=== PATIENT | female | born 1980 | race Caucasian/White ===

== ENCOUNTER 2024-06-27 19:02 | Emergency (ER) | payer OTHER ==
--- NOTE | 2024-06-27 19:29 | ERPHSYRPT ---
- History of Present Illness Time Seen by Provider: 06/27/24 19:29 Historian: patient, family Exam Limitations: no limitations Physician History: This is an obese 44-year-old white female patient of nurse practitioner Rylan who is brought in by private vehicle escorted by her secondary to abdominal pain and associated of weakness, nausea, vomiting and diarrhea symptoms multiple times in the last 3 days. Patient had an increase of her dose of Wegovy. Thursday prior to arrival, was her first increased dose. Patient has a history of hypertension, diabetes, hyperlipidemia and depression. She denies chest pain. Patient denies chest pain. Timing/Duration: day(s) (3), worse Quality: sharpness Abdominal Pain Onset Location: generalized abdomen Severity of Pain-Max: mild Severity of Pain-Current: mild (Moderate to moderate) Modifying Factors: Improves With: vomiting Associated Symptoms: diarrhea, loss of appetite, nausea, vomiting, weakness Previous symptoms: no prior history, no recent treatment Allergies/Adverse Reactions: Penicillins Allergy (Verified 06/27/24 19:42) Anaphylactic Reaction diazepam Adverse Reaction (Verified 06/27/24 19:42) Rash Home Medications: Amlodipine Besylate 5 mg [Norvasc 5 mg] 1 tab PO DAILY 06/27/24 [History] Atorvastatin Calcium 1 tab PO DAILY 06/27/24 [History] Escitalopram Oxalate 1 tab PO DAILY 06/27/24 [History] Losartan Potassium 1 tab PO DAILY 06/27/24 [History] Ondansetron [Ondansetron Odt ] 1 tab PO TID PRN 06/27/24 [History] Semaglutide [Wegovy] 1 mg SQ WEEKLY 06/27/24 [History] l-Norgest/E.estradiol-E.estrad [Levono-E Estrad 0.15-0.03-0.01] 1 tab PO DAILY 06/27/24 [History] Travel Risk - International Travel Have you traveled outside of the country in past 3 weeks: No - Emerging Infectious Disease Symptoms: Abdominal Pain, Diarrhea, Vomitting - Review of Systems Constitutional: Weakness Eyes: No Symptoms Ears, Nose, & Throat: No Symptoms Respiratory: No Symptoms Cardiac: No Symptoms Abdominal/Gastrointestinal: Abdominal Pain, Nausea, Vomiting, Appetite Changes Genitourinary Symptoms: No Symptoms Musculoskeletal: No Symptoms Skin: No Symptoms Neurological: No Symptoms Psychological: No Symptoms Endocrine: No Symptoms Hematologic/Lymphatic: No Symptoms Immunological/Allergic: No Symptoms All Other Systems: Reviewed and Negative - Past Medical History Pertinent Past Medical History: Yes - Nursing Vital Signs Nursing Vital Signs: Initial Vital Signs Temperature 97.8 F 06/27/24 19:32 Pulse Rate 71 06/27/24 19:32 Respiratory Rate 17 06/27/24 19:32 Blood Pressure 147/99 06/27/24 19:32 O2 Sat by Pulse Oximetry 97 06/27/24 19:32 Pain Scale Pain Intensity 4 - Physical Exam General Appearance: no apparent distress, alert, anxiety, obese Eye Exam: PERRL/EOMI, eyes nml inspection Ears, Nose, Throat Exam: normal ENT inspection, moist mucous membranes Neck Exam: normal inspection, non-tender, supple, full range of motion Respiratory Exam: normal breath sounds, lungs clear, airway intact, No chest tenderness, No respiratory distress Cardiovascular Exam: regular rate/rhythm, normal heart sounds, normal peripheral pulses Gastrointestinal/Abdomen Exam: soft, normal bowel sounds, tenderness (Mild diffuse tenderness to palpation), guarding (Mild diffuse tenderness to palpation), No rebound Pelvic Exam: not done Rectal Exam: not done Back Exam: normal inspection, normal range of motion, No CVA tenderness, No vertebral tenderness Extremity Exam: normal inspection, normal range of motion, pelvis stable Neurologic Exam: alert, oriented x 3, cooperative, 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 QTc is 453) Ordered Tests: Active Orders 24 hr Category Date Time Status IV Insertion STAT Care 06/27/24 19:54 Active ABDOMEN AND PELVIS W/0 CONTRAS [CT] Stat Exams 06/27/24 19:55 Taken AMYLASE Stat Lab 06/27/24 20:10 Completed CBC W DIFF Stat Lab 06/27/24 20:10 Completed CMP Stat Lab 06/27/24 20:10 Completed CULTURE,URINE Stat Lab 06/27/24 19:28 Received HCG QUALITATIVE, SERUM Stat Lab 06/27/24 20:20 Completed LIPASE Stat Lab 06/27/24 20:10 Completed UA W/RFX UR CULTURE Stat Lab 06/27/24 19:28 Completed Medication Summary Discontinued Medications Generic Name Dose Route Start Last Admin Trade Name Romeo PRN Reason Stop Dose Admin Sodium Chloride 1,000 mls @ 999 mls/hr 06/27/24 19:54 06/27/24 21:38 Sodium Chloride 0.9% 1000 Ml IV 06/27/24 20:54 Infused .Q1H1M STA Infusion Sodium Chloride Confirm 06/27/24 20:15 Sodium Chloride 0.9% 1000 Ml Administered 06/27/24 20:16 Dose 1,000 mls @ ud .ROUTE .STK-MED ONE Sodium Chloride 1,000 mls @ 999 mls/hr 06/27/24 21:34 06/27/24 22:50 Sodium Chloride 0.9% 1000 Ml IV 06/27/24 22:34 Infused .Q1H1M STA Infusion Sodium Chloride Confirm 06/27/24 21:37 Sodium Chloride 0.9% 1000 Ml Administered 06/27/24 21:38 Dose 1,000 mls @ ud .ROUTE .STK-MED ONE Sodium Chloride 500 mls @ 500 mls/hr 06/27/24 22:56 06/27/24 23:06 Sodium Chloride 0.9% 500 Ml IV 06/27/24 23:55 500 mls/hr .Q1H ONE Administration Sodium Chloride Confirm 06/27/24 23:05 Sodium Chloride 0.9% 500 Ml Administered 06/27/24 23:06 Dose 500 mls @ ud IV .STK-MED ONE Levofloxacin 500 mg 06/27/24 22:55 06/27/24 23:27 Levofloxacin 500 Mg Tablet PO 06/27/24 22:56 500 mg STAT ONE Administration Levofloxacin Confirm 06/27/24 23:27 Levofloxacin 500 Mg Tablet Administered 06/27/24 23:28 Dose 500 mg .ROUTE .STK-MED ONE Metronidazole 500 mg 06/27/24 22:55 06/27/24 23:28 Metronidazole 500 Mg Tablet PO 06/27/24 22:56 500 mg STAT ONE Administration Metronidazole Confirm 06/27/24 23:27 Metronidazole 500 Mg Tablet Administered 06/27/24 23:28 Dose 500 mg .ROUTE .STK-MED ONE Ondansetron HCl 4 mg 06/27/24 19:54 06/27/24 20:21 Ondansetron Hcl 4 Mg/2 Ml Vial IV 06/27/24 19:55 4 mg STAT ONE Administration Ondansetron HCl Confirm 06/27/24 20:15 Ondansetron Hcl 4 Mg/2 Ml Vial Administered 06/27/24 20:16 Dose 4 mg .ROUTE .STK-MED ONE Ondansetron HCl 4 mg 06/27/24 23:03 06/27/24 23:06 Ondansetron Hcl 4 Mg/2 Ml Vial IV 06/27/24 23:04 4 mg STAT ONE Administration Ondansetron HCl Confirm 06/27/24 23:05 Ondansetron Hcl 4 Mg/2 Ml Vial Administered 06/27/24 23:06 Dose 4 mg .ROUTE .STK-MED ONE Pantoprazole Sodium 40 mg 06/27/24 19:54 06/27/24 20:21 Pantoprazole 40 Mg Vial IV 06/27/24 19:55 40 mg STAT ONE Administration Pantoprazole Sodium Confirm 06/27/24 20:15 Pantoprazole 40 Mg Vial Administered 06/27/24 20:16 Dose 40 mg IV .STK-MED ONE Lab/Rad Data: Laboratory Result Diagrams 06/27/24 20:10 06/27/24 20:10 Laboratory Results 06/27/24 06/27/24 06/27/24 Range/Units 20:20 20:10 20:10 WBC 13.0 H (3.98-10.04) x10^3/uL RBC 4.36 (3.93-5.22) x10^6/uL Hgb 13.2 (11.2-15.7) g/dL Hct 38.8 (34.1-44.9) % MCV 89.0 (79.4-94.8) fL MCH 30.3 (25.6-32.2) pg MCHC 34.0 (32.2-35.5) g/dL RDW 12.4 (11.7-14.4) % Plt Count 334 (182-369) x10^3/uL MPV 10.3 (9.4-12.3) fL Gran % 74.4 H (34.0-71.1) % Immature Gran % (Auto) 0.5 H (0.001-0.429) % Nucleat RBC Rel Count 0.0 (0.00-0.2) % Eos # (Auto) 0.25 (0.04-0.36) x10^3/uL Immature Gran # (Auto) 0.06 H (0.001-0.031) x10^3u/L Absolute Lymphs (auto) 2.31 (1.18-3.74) x10^3/uL Absolute Monos (auto) 0.69 (0.24-0.86) x10^3/uL Absolute Nucleated RBC 0.00 (0.00-0.012) x10^3u/L Lymphocytes % 17.7 L (19.3-51.7) % Monocytes % 5.3 (4.7-12.5) % Eosinophils % 1.9 (0.7-5.8) % Basophils % 0.2 (0.1-1.2) % Absolute Granulocytes 9.71 H (1.56-6.13) x10^3/uL Basophils # 0.02 (0.01-0.08) x10^3/uL Sodium 141 (135-145) mmol/L Potassium 3.7 (3.5-5.1) mmol/L Chloride 106 (98-107) mmol/L Carbon Dioxide 22 (22-30) mmol/L Anion Gap 16.9 H (5-15) MEQ/L BUN 20 H (7-17) mg/dL Creatinine 1.94 H (0.52-1.04) mg/dL Estimated GFR 32.4 ML/MIN Glucose 97 (74-106) mg/dL Calcium 9.2 (8.4-10.2) mg/dL Total Bilirubin 0.70 (0.2-1.3) mg/dL AST 28 (14-36) U/L ALT 38 H (0-35) U/L Alkaline Phosphatase 64 (38-126) U/L Serum Total Protein 7.4 (6.3-8.2) g/dL Albumin 4.4 (3.5-5.0) g/dL Amylase 64 (30-110) U/L Lipase 51 (23-300) U/L Serum HCG, Qual NEGATIVE (NEGATIVE) Urine Color (Yellow) Urine Appearance (Clear) Urine pH (4.6-8.0) Ur Specific [place] (1.005-1.030) Urine Protein (Negative) Urine Glucose (UA) (Negative) mg/dL Urine Ketones (Negative) Urine Blood (Negative) Urine Nitrite (Negative) Urine Bilirubin (Negative) Urine Urobilinogen (0.2) mg/dL Ur Leukocyte Esterase (Negative) U Hyaline Cast (Auto) (0-2) /LPF Urine Microscopic RBC (0-5) /HPF Urine Microscopic WBC (0-5) /HPF Ur Epithelial Cells (None Seen) /HPF Urine Bacteria (None Seen) /HPF Urine Culture Reflexed (NO) Slides for Path Review NO 06/27/24 Range/Units 19:28 WBC (3.98-10.04) x10^3/uL RBC (3.93-5.22) x10^6/uL Hgb (11.2-15.7) g/dL Hct (34.1-44.9) % MCV (79.4-94.8) fL MCH (25.6-32.2) pg MCHC (32.2-35.5) g/dL RDW (11.7-14.4) % Plt Count (182-369) x10^3/uL MPV (9.4-12.3) fL Gran % (34.0-71.1) % Immature Gran % (Auto) (0.001-0.429) % Nucleat RBC Rel Count (0.00-0.2) % Eos # (Auto) (0.04-0.36) x10^3/uL Immature Gran # (Auto) (0.001-0.031) x10^3u/L Absolute Lymphs (auto) (1.18-3.74) x10^3/uL Absolute Monos (auto) (0.24-0.86) x10^3/uL Absolute Nucleated RBC (0.00-0.012) x10^3u/L Lymphocytes % (19.3-51.7) % Monocytes % (4.7-12.5) % Eosinophils % (0.7-5.8) % Basophils % (0.1-1.2) % Absolute Granulocytes (1.56-6.13) x10^3/uL Basophils # (0.01-0.08) x10^3/uL Sodium (135-145) mmol/L Potassium (3.5-5.1) mmol/L Chloride (98-107) mmol/L Carbon Dioxide (22-30) mmol/L Anion Gap (5-15) MEQ/L BUN (7-17) mg/dL Creatinine (0.52-1.04) mg/dL Estimated GFR ML/MIN Glucose (74-106) mg/dL Calcium (8.4-10.2) mg/dL Total Bilirubin (0.2-1.3) mg/dL AST (14-36) U/L ALT (0-35) U/L Alkaline Phosphatase (38-126) U/L Serum Total Protein (6.3-8.2) g/dL Albumin (3.5-5.0) g/dL Amylase (30-110) U/L Lipase (23-300) U/L Serum HCG, Qual (NEGATIVE) Urine Color Yellow (Yellow) Urine Appearance Cloudy A (Clear) Urine pH 5.5 (4.6-8.0) Ur Specific [place] 1.025 (1.005-1.030) Urine Protein 30 (Negative) Urine Glucose (UA) Negative (Negative) mg/dL Urine Ketones 15 A (Negative) Urine Blood Trace (Negative) Urine Nitrite Negative (Negative) Urine Bilirubin Negative (Negative) Urine Urobilinogen 1.0 A (0.2) mg/dL Ur Leukocyte Esterase Small A (Negative) U Hyaline Cast (Auto) 20-50 (0-2) /LPF Urine Microscopic RBC 11-20 A (0-5) /HPF Urine Microscopic WBC 11-20 A (0-5) /HPF Ur Epithelial Cells Few (None Seen) /HPF Urine Bacteria Few A (None Seen) /HPF Urine Culture Reflexed YES (NO) Slides for Path Review - Progress Progress: improved, re-examined Progress Note: 06/27/24 21:01 My medical decision making and the assignment of moderate complexity to this patient's medical issue today is based on review of the patient's past medical history, review the patient's medication list, reviewed patient drug allergy list, history present illness and physical findings on examination. The workup in this patient includes placement of intravenous line, infusion of normal saline solution, urinalysis, amylase, lipase, CBC, CMP, infusion of Zofran, infusion to Protonix, CT scan of the abdomen pelvis without contrast and hCG. Differential diagnosis includes but is not limited to medication side effect, electrolyte abnormalities, urinary tract infection, pancreatitis, appendicitis, colitis, cholecystitis/cholelithiasis 06/27/24 21:57 I interpreted the patient's laboratory data results. Based on the laboratory data results, and comparing today's results to lab results dated March 2024, the patient does have what appears to be acute renal insufficiency likely from dehydration. We are still waiting for the urinalysis to look at the ketone status as well as to determine if there is a urinary tract infection present. CT scan of the abdomen pelvis without contrast was interpreted by the radiologist and I reviewed the interpretation. The interpretation states no comparison studies. Normal appendix. Diarrhea present. Otherwise negative CT scan of the abdomen and pelvis without contrast. Counseled pt/family regarding: lab results, diagnosis, need for follow-up, rad results Medical Desision Making - Independent Historian Additional History obtained from: Spouse - Departure Departure Disposition: Home Clinical Impression: Diarrhea due to drug, Acute renal insufficiency, Mild dehydration, UTI (urinary tract infection) Condition: Stable Critical Care Time: No Referrals: MARYBETH WARNER NP [Primary Care Provider] - Follow up/PCP as directed Additional Instructions: Drink plenty of clear liquids over the next 24 hours before advancing your diet. Avoid fatty greasy spicy foods. Take your medications as prescribed. Call your primary care provider tomorrow, 06/28/2024, to make arrangement for follow- up appointment for further evaluation management. Hold your Wegovy dose until after you speak with your prescribing provider for further instructions and management. Prescriptions: Ondansetron ODT 4 MG [Zofran Odt 4 mg] 4 mg PO Q6H PRN PRN #10 tablet PRN Reason: Vomiting Ciprofloxacin [Cipro 500 MG] 500 mg PO BID #14 tablet Metronidazole 500 mg [Flagyl 500 MG] 500 mg PO TID #21 tablet
[2024-06-27 19:49] VITALS: TEMP 97.8
[2024-06-27 20:13] VITALS: O2SAT 100
[2024-06-27] MEDS ORDERED: Sodium Chloride 0.9% 1000 ML 1,000 ML ONE ×2 (20:15→21:37)
[2024-06-27] MEDS ORDERED: PROTONIX 40 MG IV IV ONE (20:15)
[2024-06-27] MEDS ORDERED: Zofran 4 MG/2 ML VIAL ONE ×2 (20:15→23:05)
[2024-06-27] MEDS: Sodium Chloride 0.9% 1000 ML 1,000 ML IV STA ×2 (20:20→21:38)
[2024-06-27] MEDS: PROTONIX 40 MG IV IV ONE (20:21)
[2024-06-27] MEDS: Zofran 4 MG/2 ML VIAL IV ONE ×2 (20:21→23:06)
[2024-06-27 20:31] LABS: ALBUMIN 4.4 g/dL (3.5-5.0); ANION GAP 16.9 MEQ/L (5-15); BILIRUBIN,TOTAL 0.7 mg/dL (0.2-1.3); Calcium 9.2 mg/dL (8.4-10.2); Creatinine 1 1.94 mg/dL (0.52-1.04); EST GLOMERULAR FILTRATION RATE 32.4 ML/MIN; Potassium 3.7 mmol/L (3.5-5.1); Total Protein 7.4 g/dL (6.3-8.2)
[2024-06-27 20:37] LABS: Hematocrit 38.8 % (34.1-44.9); Hemoglobin 13.2 g/dL (11.2-15.7); Red Blood Count 4.36 x10^6/uL (3.93-5.22)
[2024-06-27 20:38] LABS: Absolute Neutrophil Ct (ANC) 9.71 x10^3/uL (1.56-6.13); BASOPHIL % 0.2 % (0.1-1.2); Eosinophil % 1.9 % (0.7-5.8); Eosinophil (Absolute #) 0.25 x10^3/uL (0.04-0.36); IMMATURE GRAN % 0.5 % (0.001-0.429); Lymphocyte (Absolute #) 2.31 x10^3/uL (1.18-3.74); Lymphocytes % 17.7 % (19.3-51.7); Mean Corpuscular Hemoglobin 30.3 pg (25.6-32.2); Mean Platelet Volume 10.3 fL (9.4-12.3); Monocyte (Absolute #) 0.69 x10^3/uL (0.24-0.86); Monocytes % 5.3 % (4.7-12.5); Neutrophil % 74.4 % (34.0-71.1); Platelet Count 334 x10^3/uL (182-369); Red Cell Distribution Width 12.4 % (11.7-14.4)
[2024-06-27 20:39] LABS: Basophil (Absolute #) 0.02 x10^3/uL (0.01-0.08)
[2024-06-27 20:40] LABS: IMMATURE GRAN # 0.06 x10^3u/L (0.001-0.031)
[2024-06-27 20:43] LABS: HCG SERUM TEST NEGATIVE (NEGATIVE)
[2024-06-27 20:45] LABS: Slide Review 1 NO
[2024-06-27 22:46] LABS: Appearance Cloudy (Clear); Bacteria Few /HPF (None Seen); Bilirubin Negative (Negative); Blood Trace (Negative); Epithelial Cells Few /HPF (None Seen); Glucose, Urine Negative (Negative); Ketones 15 (Negative); Leukocyte Esterase Small (Negative); Nitrite Negative (Negative); Ph 5.5 (4.6-8.0); Protein,Urine Dip 30 (Negative); Specific Gravity 1.025 (1.005-1.030)
[2024-06-27 22:47] LABS: Hyaline Casts 20-50 /LPF (0-2)
[2024-06-27] MEDS ORDERED: Sodium Chloride 0.9% 500 ML 500 ML IV ONE (23:05)
[2024-06-27] MEDS: Sodium Chloride 0.9% 500 ML 500 ML IV ONE (23:06)
[2024-06-27] MEDS: Levofloxacin 500 MG Tablet PO ONE (23:27)
[2024-06-27] MEDS ORDERED: Levofloxacin 500 MG Tablet ONE (23:27)
[2024-06-27] MEDS ORDERED: Flagyl 500 MG ONE (23:27)
[2024-06-27] MEDS: Flagyl 500 MG PO ONE (23:28)
[2024-06-28 00:02] VITALS: BP 141/94; PULSE 82; RESP 16
--- NOTE | 2024-06-28 08:40 | XRAY ---
Indication: Abdominal pain, nausea, vomiting, and diarrhea. Multiple contiguous axial images obtained through the abdomen and pelvis without contrast. Comparison: None Lung bases clear. Heart not enlarged. Noncontrasted stomach and bowel loops appear nonobstructed with normal appendix. Mild diffuse colonic diarrhea. No free fluid/air. Remaining liver, gallbladder, pancreas, spleen, adrenal glands, kidneys, ureters, bladder, uterus, and aorta are unremarkable for noncontrast exam. Osseous structures intact with old left innominate bone fracture with beam artifact from fixation plates/screws. No ventral or inguinal hernias. Impression: 1. Colonic diarrhea and old left innominate bone fracture. 2. Remaining CT abdomen/pelvis without contrast exam is negative.
== END 2024-06-28 00:09 | disposition home or self-care (01) ==
LOC: ED 19:02
DX: K52.1 Toxic gastroenteritis and colitis (principal); T50.995A Adverse effect of other drugs, medicaments and biological substances, initial encounter; N17.9 Acute kidney failure, unspecified; E86.0 Dehydration; N39.0 Urinary tract infection, site not specified; R11.2 Nausea with vomiting, unspecified; R10.9 Unspecified abdominal pain; R53.1 Weakness; I10 Essential (primary) hypertension; E11.9 Type 2 diabetes mellitus without complications; E78.5 Hyperlipidemia, unspecified; Z79.85 Long-term (current) use of injectable non-insulin antidiabetic drugs; Z79.899 Other long term (current) drug therapy
CPT/HCPCS: 36000; 36415; 74176; 80053; 81001; 82150; 83690; 84703; 85025; 87086; 93005; 96374; 96375; 96376; 99284; J2405; A9270-GY